=== PATIENT | female | born 1995 | race Caucasian/White ===

== ENCOUNTER 2020-04-13 13:17 | Inpatient (IN) | payer OTHER ==
[~2020-04-13] VITALS: Ht 165.1 cm; Wt 82.7 kg
[2020-04-23] MEDS ORDERED: OXYTOCIN 30U/ 0.9% NaCL 500ML 500 ML IV ONE (21:03)
[2020-04-23] MEDS ORDERED: MISOPROSTOL 25 MCG TABLET ONE (21:08)
[2020-04-23] MEDS: MISOPROSTOL 25 MCG TABLET VG PRN (21:18)
[2020-04-23] MEDS ORDERED: FENTANYL PF 100 MCG/2ML IV PRN (21:30)
[2020-04-23] MEDS ORDERED: ONDANSETRON 2MG/ML, 2ML IVPush PRN (21:30)
[2020-04-23] MEDS ORDERED: TERBUTALINE 1 MG/ML, 1ML IVPush PRN (21:30)
[2020-04-23] MEDS ORDERED: TERBUTALINE 1 MG/ML, 1ML SQ PRN (21:30)
[2020-04-23] MEDS ORDERED: CALCIUM CARBONATE 500 MG TAB.CHEW PO PRN (21:30)
[2020-04-23] MEDS ORDERED: PLEASE ENTER ALLERGIES MC SCH (21:30)
[2020-04-23] MEDS ORDERED: FENTANYL PF 100 MCG/2ML IVPush PRN (21:30)
[2020-04-23 21:39] LABS: BASOPHILS # (AUTO) 0.05 x10^3/uL (0-0.1); BASOPHILS % (AUTO) 1 % (0-1); EOSINOPHILS # (AUTO) 0.11 x10^3/uL (0-0.4); EOSINOPHILS % (AUTO) 1 % (1-7); LYMPHOCYTES # (AUTO) 1.92 x10^3/uL (1-3.4); LYMPHOCYTES % (AUTO) 23 % (22-44); MD NO; MEAN CORPUSCULAR HGB CONC 32.6 g/dL (32.4-35.8); MEAN CORPUSCULAR VOLUME 82.7 fL (80-100); MEAN PLATELET VOLUME 10.5 fL (7.4-10.4); MONOCYTES # (AUTO) 0.55 x10^3/uL (0.2-0.8); MONOCYTES % (AUTO) 7 % (2-9); NEUTROPHILS # (AUTO) 5.91 x10^3/uL (1.8-6.8); NEUTROPHILS % (AUTO) 69 % (42-75); PLATELET COUNT 272 x10^3/uL (130-400); RED BLOOD COUNT 4.24 x10^6/uL (3.82-5.3); RED CELL DISTRIBUTION WIDTH 13.4 % (9.6-15.2)
[2020-04-24] MEDS ORDERED: MISOPROSTOL 200 MCG TABLET ONE (01:13)
[2020-04-24] MEDS ORDERED: LIDOCAINE 1%, 20ML ONE (01:13)
[2020-04-24] MEDS ORDERED: OXYTOCIN 30U/ 0.9% NaCL 500ML 500 ML ONE ×2 (01:13→20:40)
[2020-04-24] MEDS ORDERED: MISOPROSTOL 25 MCG TABLET ONE (01:13)
[2020-04-24] MEDS: MISOPROSTOL 25 MCG TABLET VG PRN (01:20)
[2020-04-24 02:00] VITALS: BP 118/71
[2020-04-24] MEDS ORDERED: OXYTOCIN 30U/ 0.9% NaCL 500ML 500 ML IV PRN (02:44)
[2020-04-24] MEDS: D5%-LACTATED RINGERS 1,000 ML IV SCH ×3 (02:44→18:44)
[2020-04-24] MEDS: LACTATED RINGERS 1,000 ML IV SCH ×3 (02:44→18:44)
[2020-04-24] MEDS ORDERED: FENTANYL PF 100 MCG/2ML ONE (07:45)
[2020-04-24] MEDS ORDERED: TERBUTALINE 1 MG/ML, 1ML ONE (07:59)
[2020-04-24] MEDS ORDERED: BUPIVACAINE 0.25% ONE (08:44)
[2020-04-24] MEDS ORDERED: LIDOCAINE/MPF 2%-EPI 1:200K, 20 ML ONE (08:44)
[2020-04-24] MEDS ORDERED: FENTANYL/BUPIV./NS/PF 250 ML EPIDCONT ONE (08:45)
[2020-04-24] MEDS ORDERED: FENTANYL/BUPIV./NS/PF 250 ML EPIDCONT SCH (09:07)
[2020-04-24] MEDS ORDERED: LACTATED RINGERS 1,000 ML IV SCH (09:07)
[2020-04-24] MEDS ORDERED: ONDANSETRON 2MG/ML, 2ML IVPush PRN (09:30)
[2020-04-24] MEDS ORDERED: DIPHENHYDRAMINE 50 MG/ML, 1ML IVPush PRN (09:30)
[2020-04-24] MEDS ORDERED: LACTATED RINGERS 1,000 ML IVBOLUS PRN (09:30)
[2020-04-24] MEDS ORDERED: EPHEDRINE 50 MG/ML, 1ML IVPush PRN (09:30)
[2020-04-24] MEDS ORDERED: NALOXONE 0.4 MG/ML, 1ML IVPush PRN (09:30)
[2020-04-24] MEDS ORDERED: NEWBORN KIT ONE (18:24)
[2020-04-24] MEDS ORDERED: SIMETHICONE 80 MG CHEW TAB PO PRN (19:00)
[2020-04-24] MEDS ORDERED: ACETAMINOPHEN 325 MG TABLET PO PRN ×2 (19:00)
[2020-04-24] MEDS ORDERED: OXYcodone/APAP 5/325MG TABLET PO PRN ×2 (19:00)
[2020-04-24] MEDS ORDERED: ONDANSETRON 2MG/ML, 2ML IV PRN (19:00)
[2020-04-24] MEDS ORDERED: CARBOPROST TROMETHAMINE 250 MCG/ML, 1ML IM PRN (19:00)
[2020-04-24] MEDS ORDERED: DIPH,PERTUSS(ACELL),TET VAC/PF NC IM-VACC PRN (19:00)
[2020-04-24] MEDS: OXYTOCIN 30U/ 0.9% NaCL 500ML 500 ML IV SCH (19:00)
[2020-04-24] MEDS ORDERED: DOCUSATE 100 MG CAPSULE PO PRN (19:00)
[2020-04-24] MEDS ORDERED: MISOPROSTOL 200 MCG TABLET PR PRN (19:00)
[2020-04-24] MEDS ORDERED: METHYLERGONOVINE 0.2 MG/ML IM PRN (19:00)
[2020-04-24 21:30] VITALS: BP 114/68
[2020-04-24] MEDS: IBUPROFEN 600 MG TABLET PO PRN (23:08)
[2020-04-25 02:00] VITALS: BP 98/56
[2020-04-25 02:33] LABS: BASOPHILS # (AUTO) 0.02 x10^3/uL (0-0.1); BASOPHILS % (AUTO) 0 % (0-1); EOSINOPHILS % (AUTO) 0 % (1-7); LYMPHOCYTES % (AUTO) 8 % (22-44); MD NO; MEAN CORPUSCULAR HEMOGLOBIN 26.7 pg (27.0-34.8); MEAN CORPUSCULAR HGB CONC 32.3 g/dL (32.4-35.8); MEAN CORPUSCULAR VOLUME 82.8 fL (80-100); MEAN PLATELET VOLUME 10.2 fL (7.4-10.4); MONOCYTES # (AUTO) 1.07 x10^3/uL (0.2-0.8); MONOCYTES % (AUTO) 7 % (2-9); NEUTROPHILS # (AUTO) 12.95 x10^3/uL (1.8-6.8); NEUTROPHILS % (AUTO) 85 % (42-75); PLATELET COUNT 215 x10^3/uL (130-400); RED BLOOD COUNT 3.97 x10^6/uL (3.82-5.3); RED CELL DISTRIBUTION WIDTH 13.4 % (9.6-15.2)
[2020-04-25] MEDS: D5%-LACTATED RINGERS 1,000 ML IV SCH (02:44)
[2020-04-25] MEDS: LACTATED RINGERS 1,000 ML IV SCH (02:44)
[2020-04-25 04:04] VITALS: BP 102/61
[2020-04-25] MEDS: OXYTOCIN 30U/ 0.9% NaCL 500ML 500 ML IV SCH (05:00)
[2020-04-25] MEDS: IBUPROFEN 600 MG TABLET PO PRN ×2 (07:35→15:58)
[2020-04-25 07:46] VITALS: BP 99/66
[2020-04-25] MEDS ORDERED: PRENATAL VIT/IRON/FA 1 EACH TABLET PO SCH (09:00)
[2020-04-25 12:30] VITALS: BP 107/68
[2020-04-25] MEDS ORDERED: OXYC-302 PO (12:36)
[2020-04-25] MEDS ORDERED: IBUP-1223 PO (12:36)
[2020-04-25] MEDS ORDERED: MEASLES,MUMPS&RUBELLA VACC/PF 0.5 ML SQ-VACC ONE (16:00)
[2020-04-25 16:29] VITALS: BP 121/77
== END 2020-04-25 18:33 | disposition home or self-care (01) | DRG 807 ==
LOC: LDIP 04-23 20:25 → 2NW 04-24 21:06
PROVIDERS: ADMIT Obstetrics & Gynecology Maternal & Fetal Medicine; ATTEND Obstetrics & Gynecology Maternal & Fetal Medicine
PROC: 10E0XZZ Delivery of Products of Conception, External Approach (ICD-10-PCS; principal; 2020-04-24)
PROC: 0KQM0ZZ Repair Perineum Muscle, Open Approach (ICD-10-PCS; 2020-04-24)
PROC: 3E0R3BZ Introduction of Anesthetic Agent into Spinal Canal, Percutaneous Approach (ICD-10-PCS; 2020-04-24)
PROC: 00HU33Z Insertion of Infusion Device into Spinal Canal, Percutaneous Approach (ICD-10-PCS; 2020-04-24)
PROC: 10H07YZ Insertion of Other Device into Products of Conception, Via Natural or Artificial Opening (ICD-10-PCS; 2020-04-24)
DX: O70.1 Second degree perineal laceration during delivery (principal); Z37.0 Single live birth; Z3A.41 41 weeks gestation of pregnancy
CPT/HCPCS: 36415; 82803; 85025; 86592; 86850; 86900; 90715; G0378; J3010; J7120; U0001-CS